=== PATIENT | male | born 1950 | race American Indian/Alaskan Native ===

== ENCOUNTER 2017-02-14 08:59 | Day surgery (SDC) | payer MEDICARE, OTHER ==
[2017-02-14] MEDS ORDERED: PLAVIX PO ONE ×2 (09:17→10:10)
[2017-02-14] MEDS ORDERED: NACL 0.9% 500 ML 500 ML IV SCH (10:00)
[2017-02-14] MEDS ORDERED: XYLOCAINE 2% INFILTRATI ONE (11:25)
[2017-02-14] MEDS ORDERED: SUBLIMAZE ONE (11:25)
[2017-02-14] MEDS ORDERED: HEPARIN 10,000 UNITS/10 ML ONE (11:25)
[2017-02-14] MEDS ORDERED: HEPARIN/NS 5000 UNIT/500ML(CATH LAB) 1,000 ML IR ONE (11:25)
[2017-02-14] MEDS ORDERED: CALAN ONE (11:25)
[2017-02-14] MEDS ORDERED: VERSED ONE (11:25)
[2017-02-14] MEDS ORDERED: NITROGLYCERIN SYRINGE 3 ML ONE (11:55)
--- NOTE | 2017-02-14 13:32 | Short Stay Summary ---
Short Stay Documentation Date of service: 02/14/17 - History H&P: obtained from office - Allergies and Medications Current Medications: Allergies No Known Allergies Allergy (Unverified 02/14/17 09:00) Home Medications Medication Instructions Recorded Confirmed Last Taken Type Amlodipine Besylate/Benazepril 1 each PO QDAY 02/14/17 02/14/17 02/14/17 06:00 History [Lotrel 5-40 mg] 1 cap Aspirin EC [Aspirin Enteric Coated 81 mg PO DAILY 02/14/17 02/14/17 02/14/17 06: 30 History TAB] 81mg AtorvaSTATin [Lipitor] 40 mg PO QHS 02/14/17 02/14/17 02/13/17 History 40mg Clopidogrel Bisulfate [Plavix] 75 mg PO DAILY 02/14/17 02/14/17 02/14/17 History 75 mg Furosemide [Lasix] 20 mg PO QDAY 02/14/17 02/14/17 02/13/17 History 20mg Insulin Aspart [NovoLOG Flexpen] 5 units SQ TID PRN 02/14/17 02/14/17 11/14/16 History 5 units Insulin Glargine [Lantus VIAL] 75 units SQ HS 02/14/17 02/14/17 02/13/17 History 75 units Magnesium Oxide [Magnesium] 400 mg PO DAILY PRN 02/14/17 02/14/17 01/28/17 History Metoprolol [Lopressor] 100 mg PO DAILY 02/14/17 02/14/17 02/14/17 06:00 History 200mg Multivit-Min/Iron Fum/Folic AC 1 tab PO DAILY 02/14/17 02/14/17 02/12/17 History [Sasel-Croczli-Ebrtvepj Tablet] Niacin [Niaspan ER] 1,000 mg PO QHS 02/14/17 02/14/17 02/13/17 History 1000mg Nitroglycerin [Nitrostat] 0.4 mg SL Q5M PRN 02/14/17 02/14/17 01/14/17 History 0.4mg Sildenafil Citrate [Viagra] 100 mg PO QDAY PRN 02/14/17 02/14/17 12/15/16 History 50mg Ubidecarenone [Co Q-10] 50 mg PO DAILY 02/14/17 02/14/1711/14/17 History 1 cap Vit D3 & K/Berberine HCl/Hops 1 tab PO DAILY 02/14/17 02/14/17 02/13/17 History [Ostera Tablet] 1 tab metFORMIN [Glucophage] 500 mg PO BID 02/14/17 02/14/17 02/13/17 History 1000mg Active Medications Sodium Chloride (Nacl 0.9% 500 Ml) 500 mls @ 50 mls/hr IV DIRECT RENETTA Stop: 02/14/17 19:59 Last Admin: 02/14/17 10:33 Dose: 50 mls/hr - Brief post op/procedure progress note Date of procedure: 02/14/17 Pre-op diagnosis: PVD Post-op diagnosis: same Procedure: peripheral angiogram - see dictated report Anesthesia: local Estimated blood loss: none Pathology: none Condition: stable - Disposition Condition at discharge: Stable Disposition: DISCHARGED TO HOME OR SELFCARE - Discharge Diagnoses (1) PVD (peripheral vascular disease) Status: Chronic (2) Tobacco use Status: Chronic (3) CAD (coronary artery disease) Status: Chronic Qualifiers: Coronary Disease-Associated Artery/Lesion type: C [place] vs. transplanted heart: N Associated angina: A (4) HTN (hypertension) Status: Chronic Qualifiers: Hypertension type: H (5) Hyperlipemia Status: Chronic Qualifiers: Hyperlipidemia type: H Short Stay Discharge Plan Activity: advance as tolerated Diet: low fat, low cholesterol, low salt Wound: open to air, keep clean and dry Follow up with: ANA YUAN MD [Primary Care Provider] - 7 Days MAXIMINO ELISE MD [Staff Physician] - 7 Days Forms: Post Arteriogram Instruct
--- NOTE | 2017-02-14 14:24 | Cardiac Catherization Report ---
CLINICAL INFORMATION: This is a 66-year-old -[place] gentleman with known history of coronary artery disease, hypertension, diabetes, smoker, who has been having claudication symptoms on aspirin, Plavix here and ultrasound shows monophasic flow on low arterial studies and severe below the knee disease noted. So peripheral angiogram procedure was done via the right radial artery, sterile technique, local anesthesia, a 6-Persian radial sheath inserted, 5-Persian pigtail catheter was placed from the right radial artery to the distal abdominal aorta and the abdominal aorta runoff was done showed the following findings. FINDINGS: 1. Aorta large and patent, bilateral common iliacs patent, bilateral internal iliacs patent, bilateral external iliacs patent, bilateral common femoral artery is patent. 2. Right SFA mid is diffuse disease 80% distally at the popliteal becomes 100%, extensive collateralization feeding into the posterior tibial artery which is patent and anterior tibial and peroneal 100%. 3. Left SFA diffuse disease of 60% with a focal 80 to 90% noted in the distal SFA, popliteal patent with the peroneal patent. Anterior tibial 100% and posterior tibial 100%, but collateralization from the peroneal feeding into a posterior tibial distally. 5-Persian pigtail taken over a guidewire, 6-Persian radial sheath was discontinued. Radial dressing applied. No hematoma. No bleeding. SUMMARY: 1. Aorta and iliac system patent. 2. Right SFA diffuse disease, 50% and distal popliteal is 100% with collateralization, genicular branches feeding into the posterior tibial with peroneal anterior tibial 100%. 3. Left SFA has diffuse disease, 60% with focal, 80% with popliteal patent. Peroneal patent, but anterior tibial and posterior tibial is 100%, but collateralization into the distal portion by the feet. 4. The patient will continue dual antiplatelet, smoking cessation, post radial care and intervention of the lower extremities. JOB# [id number] DEBBIE/GISSEL WARE
[2017-02-14 14:38] VITALS: BP 121/76
[2017-02-15] MEDS ORDERED: PLAVIX PO ONE (10:10)
== END 2017-02-14 15:15 | disposition home or self-care (01) ==
LOC: OPU 08:59
PROVIDERS: ATTEND Internal Medicine
DX: I70.213 Atherosclerosis of native arteries of extremities with intermittent claudication, bilateral legs (principal); I25.10 Atherosclerotic heart disease of native coronary artery without angina pectoris; I10 Essential (primary) hypertension; E78.5 Hyperlipidemia, unspecified; E11.9 Type 2 diabetes mellitus without complications; F17.290 Nicotine dependence, other tobacco product, uncomplicated; Z79.899 Other long term (current) drug therapy; Z79.01 Long term (current) use of anticoagulants; Z79.4 Long term (current) use of insulin; Z79.82 Long term (current) use of aspirin; Z72.89 Other problems related to lifestyle; Z83.3 Family history of diabetes mellitus
CPT/HCPCS: 36200; 75716; 82962; C1894; J1644; J2250; J3010; J7040; Q9967

== ENCOUNTER 2017-05-28 06:44 | Observation (INO) | payer MEDICARE, OTHER ==
[2017-05-28 07:32] LABS: Basophils % (Auto) 0.3 % (0.0-1.8); Eosinophils % (Auto) 0.9 % (0.0-4.3); Hematocrit 42.5 % (35.5-45.6); Hemoglobin 14.1 gm/dl (11.8-15.2); Mean Corpuscular HGB Conc 33 % (32-34); Mean Corpuscular Hemoglobin 30 pg (28-32); Mean Corpuscular Volume 89 fl (84-94); Platelet Count 214 K/mm3 (140-440); Red Blood Count 4.76 M/mm3 (3.65-5.03); Red Cell Distribution Width 16.1 % (13.2-15.2); White Blood Count 7.2 K/mm3 (4.5-11.0)
[2017-05-28] MEDS: VERSED ONE ×2 (07:40→09:40)
[2017-05-28] MEDS: SUBLIMAZE ONE ×2 (07:40→09:40)
[2017-05-28 07:52] LABS: Anion Gap 17 mmol/L; Blood Urea Nitrogen 12 mg/dL (9-20); Carbon Dioxide 24 mmol/L (22-30); Chloride 104.5 mmol/L (98-107); Glucose 223 mg/dL (75-100); Potassium 4.3 mmol/L (3.6-5.0); Sodium 141 mmol/L (137-145)
[2017-05-28 07:55] LABS: INR 0.96 (0.87-1.13)
[2017-05-28] MEDS ORDERED: NACL 0.9% 500 ML 500 ML IV SCH (08:00)
[2017-05-28] MEDS ORDERED: HEPARIN/NS 5000 UNIT/500ML(CATH LAB) 1,000 ML IR ONE (09:28)
[2017-05-28] MEDS ORDERED: HEPARIN 10,000 UNITS/10 ML ONE (09:29)
[2017-05-28] MEDS ORDERED: XYLOCAINE 2% INFILTRATI ONE (09:29)
[2017-05-28] MEDS ORDERED: NACL 0.9% 100 ML ONE (09:46)
[2017-05-28] MEDS ORDERED: ANGIOMAX IV ONE (09:46)
[2017-05-28] MEDS ORDERED: WATER FOR INJ (PF) 10 ML ONE (09:46)
[2017-05-28] MEDS ORDERED: NORCO 5/325 PO PRN (11:09)
[2017-05-28] MEDS ORDERED: ZOFRAN IV PRN (11:09)
[2017-05-28] MEDS ORDERED: ULTRAM PO PRN (11:09)
[2017-05-28] MEDS ORDERED: NON-FORMULARY (Insulin Aspart [Novolog Flexpen] 5 UNITS) SQ PRN (11:13)
[2017-05-28] MEDS ORDERED: D50W (25GM) Syringe IV PRN (11:16)
[2017-05-28] MEDS ORDERED: NACL 0.9% 1000 ML 1,000 ML IV SCH (12:00)
[2017-05-28] MEDS ORDERED: NOVOLOG SUB-Q SCH (12:30)
[2017-05-28] MEDS ORDERED: PLAVIX ONE (15:00)
[2017-05-28] MEDS ORDERED: PLAVIX PO ONE (15:00)
[2017-05-28] MEDS: BABY ASPIRIN PO SCH (15:01)
[2017-05-28] MEDS: NOVOLOG SUB-Q SCH (21:52)
[2017-05-28] MEDS ORDERED: LEVEMIR SUB-Q SCH (22:00)
[2017-05-28] MEDS ORDERED: INSULIN GLARGINE 75 UNIT SQ SCH (22:00)
[2017-05-29 06:56] LABS: Basophils % (Auto) 0.3 % (0.0-1.8); Eosinophils % (Auto) 0.6 % (0.0-4.3); Hematocrit 37.8 % (35.5-45.6); Hemoglobin 12.9 gm/dl (11.8-15.2); Mean Corpuscular HGB Conc 34 % (32-34); Mean Corpuscular Hemoglobin 30 pg (28-32); Mean Corpuscular Volume 88 fl (84-94); Platelet Count 177 K/mm3 (140-440); Red Blood Count 4.27 M/mm3 (3.65-5.03); Red Cell Distribution Width 16.2 % (13.2-15.2); White Blood Count 7.3 K/mm3 (4.5-11.0)
[2017-05-29 07:21] LABS: Anion Gap 16 mmol/L; Blood Urea Nitrogen 12 mg/dL (9-20); Calcium 8.5 mg/dL (8.4-10.2); Carbon Dioxide 23 mmol/L (22-30); Glucose 183 mg/dL (75-100); Potassium 3.9 mmol/L (3.6-5.0); Sodium 140 mmol/L (137-145)
--- NOTE | 2017-05-29 08:17 | Procedure Note ---
PERIPHERAL INTERVENTION CLINICAL INFORMATION: This is a 66-year-old gentleman with known peripheral vascular disease, smoker, hypertension, hyperlipidemia, with claudication symptoms and had a peripheral angiogram which showed a right SFA distal 100% with popliteal 100 off with a single-vessel runoff. Left SFA, distal, had a focal 70%, ectatic vessel, popliteal patent. Anterior tibial 100%, bifurcation, TP trunk bifurcates to peroneal and posterior tibial and had 90% going to peroneal and 60% going to the posterior tibial. So, the procedure was done via the right common femoral artery, sterile technique, local anesthesia, 5-Mozambican groin sheath inserted. PROCEDURE DETAILS: 1. Using an Advantage wire and a rim catheter, I was able to navigate into the distal SFA of the left side. 2. I removed the rim catheter and the 5-Mozambican sheath and placed the destination sheath 7-Mozambican from the right common femoral artery to the left common femoral artery. 3. Wired into peroneal with a [place] wire and ballooned with a 3.0 x 30 balloon [place] from the TP trunk into the peroneal. The peroneal in the mid section is 100%, but there is a large genicular branch that feeds distally to it. 4. Then, I used a drug-coated balloon 4.0 x 40 and inflated at 6 atmospheres, reduced stenosis less than 20%, flow improved into genicular branch and the peroneal. 5. Rewired with a Choice PT in the posterior tibia and ballooned from the TP trunk into the peroneal with a 3.0 x 30 Impact balloon and reduced stenosis to less than 20% with improved flow into a single-vessel runoff, and improved collaterals into the anterior tibial. 6. TOWER LOADER OPERATOR of the left distal SFA on the Choice PT wire. Used a drug-coated balloon IN.PACT Admiral 5.0 x 40-mm inflated at 8 atmospheres, but there was a flow-limiting dissection now. 7. Stent with an EV3 Protege 6.0 x 60-mm and then post-dilated the same 5.0 x 40 at 12-14 atmospheres, reduced stenosis down to 0, continued KARINA 3 flow. No dissection or embolization. The patient has single-vessel 1/2 vessel runoff now, noted with TP trunk and posterior tibial patent and peroneal in the mid 100%, but distally is fed by a collateral and anterior tibial is 100%, but distal is fed by collaterals from the posterior tibial. 8. A 7-Mozambican destination sheath over the guide wire, 7-Mozambican groin sheath was sewn in. No hematoma. No bleeding. SUMMARY: 1. Successful TOWER LOADER OPERATOR of the left distal SFA with a drug-coated balloon 5.0 x 40 and then used a stent 6.0 x 60 for dissection and post-dilated with a 5.0 x 40 balloon. 2. TOWER LOADER OPERATOR of the TP trunk and peroneal and TP trunk into the posterior tibial, drug-coated balloon from the TP trunk to the peroneal 4.0 x 40 Admiral and balloon 3.0 x 30 in the posterior tibial with successful 1/2 vessel runoff feeds the anterior tibial and peroneal distally via collaterals and had improved flow. Discussed in detail with the patient and patient's family. JOB# [id number] DEBBIE/GISSEL
--- NOTE | 2017-05-29 09:43 | Short Stay Summary ---
Short Stay Documentation Date of service: 05/29/17 - History H&P: obtained from office - Allergies and Medications Current Medications: Allergies No Known Allergies Allergy (Verified 05/28/17 07:27) Home Medications Medication Instructions Recorded Confirmed Last Taken Type Amlodipine Besylate/Benazepril 1 each PO QDAY 02/14/17 05/28/17 05/27/17 History [Lotrel 5-40 mg] Aspirin EC [Aspirin Enteric Coated 81 mg PO DAILY 02/14/17 05/28/17 05/27/17 History TAB] AtorvaSTATin [Lipitor] 40 mg PO QHS 02/14/17 05/28/17 1 Month Ago History Clopidogrel Bisulfate [Plavix] 75 mg PO DAILY 02/14/17 05/28/17 05/27/17 History Furosemide [Lasix TAB] 20 mg PO QDAY 02/14/17 05/28/17 05/27/17 History Insulin Aspart [NovoLOG Flexpen] 5 units SQ TID PRN 02/14/17 05/28/17 2 Months Ago History Insulin Glargine [Lantus VIAL] 75 units SQ HS 02/14/17 05/28/17 05/26/17 History Magnesium Oxide [Magnesium] 400 mg PO DAILY PRN 02/14/17 05/28/17 1 Week Ago History Metoprolol [Lopressor TAB] 100 mg PO DAILY 02/14/17 05/28/17 05/27/17 History Multivit-Min/Iron Fum/Folic AC 1 tab PO DAILY 02/14/17 05/28/17 3 Days Ago History [Ykwmq-Ukxnkuq-Gqtjggzf Tablet] Niacin [Niaspan ER] 1,000 mg PO QHS 02/14/17 05/28/17 1 Week Ago History Nitroglycerin [Nitrostat] 0.4 mg SL Q5M PRN 02/14/17 05/28/17 2 Weeks Ago History Sildenafil Citrate [Viagra] 100 mg PO QDAY PRN 02/14/17 05/28/17 1 Month Ago History Ubidecarenone [Co Q-10] 50 mg PO DAILY 02/14/17 05/28/17 1 Week Ago History Vit D3 & K/Berberine HCl/Hops 1 tab PO DAILY 02/14/17 05/28/17 1 Week Ago History [Ostera Tablet] metFORMIN [Glucophage] 500 mg PO BID 02/14/17 05/28/17 05/27/17 History Active Medications Acetaminophen/Hydrocodone Bitart ([place] 5/325) 1 each PO Q6H PRN PRN Reason: Pain, Moderate (4-6) Aspirin (Baby Aspirin) 81 mg PO QDAY [facility] Last Admin: 05/28/17 15:01 Dose: 81 mg Atorvastatin Calcium (Lipitor) 40 mg PO QHS [facility] Last Admin: 05/28/17 21:54 Dose: 40 mg Clopidogrel Bisulfate (Plavix) 75 mg PO QDAY [facility] Dextrose (D50w (25gm) Syringe) 50 ml IV PRN PRN PRN Reason: Hypoglycemia Insulin Aspart (Novolog) 0 units SUB-Q ACHS [facility] PRN Reason: Protocol Last Admin: 05/28/17 21:52 Dose: 4 units Insulin Detemir (Levemir) 75 units SUB-Q QHS [facility] Last Admin: 05/28/17 21:53 Dose: 75 units Metoprolol Tartrate (Lopressor) 100 mg PO DAILY [facility] Ondansetron HCl (Zofran) 4 mg IV Q8H PRN PRN Reason: N/V unrelieved by Reglan Tramadol HCl (Ultram) 50 mg PO Q4H PRN PRN Reason: Pain, Mild (1-3) - Brief post op/procedure progress note Date of procedure: 05/28/17 Pre-op diagnosis: PAD Post-op diagnosis: same Procedure: SUPPLIER ENGINEER - see procedure note Anesthesia: local Estimated blood loss: none Condition: stable - Disposition Condition at discharge: Stable - Discharge Diagnoses (1) PVD (peripheral vascular disease) Status: Chronic (2) HTN (hypertension) Status: Chronic Qualifiers: Hypertension type: H (3) Hyperlipemia Status: Chronic Qualifiers: Hyperlipidemia type: H (4) Tobacco use Status: Chronic Short Stay Discharge Plan Activity: advance as tolerated Diet: low fat, low cholesterol, low salt Wound: keep clean and dry, per your surgeon's advice Follow up with: ANA YUAN MD [Primary Care Provider] - 7 Days
[2017-05-29] MEDS ORDERED: PLAVIX PO SCH (10:00)
[2017-05-29] MEDS ORDERED: BABY ASPIRIN PO SCH (10:00)
[2017-05-29] MEDS ORDERED: LOPRESSOR PO SCH (10:00)
[2017-05-29] MEDS: BABY ASPIRIN PO SCH (10:07)
[2017-05-29] MEDS: NOVOLOG SUB-Q SCH (10:09)
[2017-05-29 12:54] VITALS: BP 150/83
== END 2017-05-29 13:05 | disposition home or self-care (01) ==
LOC: CATHLABREC 06:44 → 4A 11:33
PROVIDERS: ADMIT Internal Medicine; ATTEND Internal Medicine
DX: I73.9 Peripheral vascular disease, unspecified (principal); F17.210 Nicotine dependence, cigarettes, uncomplicated; I10 Essential (primary) hypertension; E78.5 Hyperlipidemia, unspecified
CPT/HCPCS: 36415; 37226; 37228; 75710; 80048; 82962; 85025; 85347; 85610; 85730; 96372; A9270; C1725; C1769; C1876; C1887; G0378; J0583; J1644; J2250; J3010; J7040; J1815; J1818; Q9967

== ENCOUNTER 2020-09-26 06:24 | Day surgery (SDC) | payer MEDICARE, OTHER ==
[2020-09-26] MEDS ORDERED: SODIUM CHLORIDE 0.9% 500 ML 500 ML IV SCH (08:00)
[2020-09-26] MEDS ORDERED: MIDAZOLAM 2 MG/2 ML INJ ONE (08:34)
[2020-09-26] MEDS ORDERED: fentaNYL 100 MCG/2 ML INJ ONE (08:34)
[2020-09-26] MEDS ORDERED: LIDOCAINE (2%) 20 MG/1 ML VIAL 20 ML MDV INFILTRATI ONE ×3 (08:35→09:49)
[2020-09-26] MEDS ORDERED: HEPARIN/NS 5000 UNIT/500ML 1,500 ML IR ONE (08:36)
[2020-09-26] MEDS ORDERED: HEPARIN 10,000 UNITS/10 ML VIAL ONE (08:36)
[2020-09-26] MEDS ORDERED: NITROGLYCERIN SYRINGE 3 ML ONE (08:36)
[2020-09-26] MEDS ORDERED: HEPARIN 10,000 UNITS/10 ML VIAL IV ONE ×2 (09:23→09:49)
[2020-09-26] MEDS: VERAPAMIL 5 MG/2 ML INJ ONE ×2 (09:43→09:50)
--- NOTE | 2020-09-26 11:13 | Cardiac Catherization Report ---
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 He has hypertension, hyperlipidemia, smoker with peripheral vascular disease. DESCRIPTION OF PROCEDURE: Procedure was started at 9:48 a.m., finished at 10:03 which is 15 minutes of moderate sedation. Procedure was done via the right radial artery, sterile technique, local anesthesia, 6-Indian radial sheath inserted. Left and JL3.5 catheter. Left main is a large caliber vessel, patent. LAD is a large caliber vessel, mid smooth diffuse 60-70%. Diagonal 1 and medium caliber vessel, patent with mild luminal irregularities. Diagonal 2 small caliber. Circumflex ostial is patent, goes into a small OM1 patent. After that, the mid circumflex 99% with left to left collaterals noted feeding into a small to medium caliber OM1 and OM2 with extensive collateralization feeding into the distal RCA and mid RCA. RCA proximal engaged with JR4, is 100%. LV gram shows low normal EF approximately 45-50%. LVEDP 11 mmHg, LV is 128. Aortic is 120/66. No gradient across the aortic valve on pullback. 5-Indian catheters all taken over guidewire, 6-Indian radial sheath was discontinued. Radial dressing applied. No hematoma, no bleeding. SUMMARY: Left main patent, LAD 60-70% with no ischemia and cardiac PET in the anterior region. Diagonal 1 patent, mild luminal irregularities. Circumflex mid 99% with left to right collaterals feeding into the mid RCA. RCA proximal is 100% with low normal EF of 45-50%. The patient will be referred to [place] for CT of the RCA and circumflex. JOB# [id number] VRM/NTS
--- NOTE | 2020-09-26 11:47 | Short Stay Summary ---
Short Stay Documentation Date of service: 09/26/20 - History H&P: obtained from office - Allergies and Medications Current Medications: Allergies No Known Allergies Allergy (Verified 05/28/17 07:27) Home Medications Medication Instructions Recorded Confirmed Last Taken Type Amlodipine Besylate/Benazepril 1 each PO QDAY 02/14/17 09/26/20 09/25/20 History [Lotrel 5-40 mg] AtorvaSTATin [Lipitor] 40 mg PO QHS 02/14/17 09/26/20 09/25/20 History Furosemide [Lasix TAB] 20 mg PO QDAY 02/14/17 09/26/20 09/25/20 History Insulin Aspart (Nf) [NovoLOG 5 units SQ TID PRN 02/14/17 09/26/20 09/25/20 History Flexpen] Insulin Glargine [Lantus VIAL] 75 units SQ HS 02/14/17 09/26/20 09/25/20 History Metoprolol [Lopressor TAB] 200 mg PO DAILY 02/14/17 09/26/20 09/26/20 History Multivit-Min/Iron Fum/Folic AC 1 tab PO DAILY 02/14/17 09/26/20 09/25/20 History [Hnvyy-Mzkrgfd-Mvxwuqef Tablet] Niacin [Niaspan ER] 1,000 mg PO QHS 02/14/17 09/26/20 09/25/20 History Nitroglycerin [Nitrostat] 0.4 mg SL Q5M PRN 02/14/17 09/26/20 2 Weeks Ago History ~09/12/20 Sildenafil Citrate [Viagra] 100 mg PO QDAY PRN 02/14/17 09/26/20 2 Weeks Ago History ~09/12/20 Ubidecarenone [Co Q-10] 50 mg PO DAILY 02/14/17 09/26/20 09/25/20 History Aspirin [Aspirin BABY CHEW TAB] 81 mg PO QDAY tab.chew 05/29/17 09/26/20 09/26/20 Rx Clopidogrel [Plavix] 75 mg PO QDAY tablet 05/29/17 09/26/20 09/26/20 Rx metFORMIN [Glucophage] 500 mg PO BID #60 05/29/17 09/26/20 09/24/20 Rx Valsartan [Diovan] 320 mg PO QDAY 09/26/20 09/26/20 09/26/20 History Active Medications Hydrocodone Bitart/Acetaminophen (Hydrocodone/Acetaminophen 5-325 Mg Tab) 1 each PO Q4H PRN PRN Reason: Pain, Moderate (4-6) Sodium Chloride (Nacl 0.9% 500 Ml) 500 mls @ 50 mls/hr IV DIRECT RENETTA Stop: 09/26/20 17:59 Last Admin: 09/26/20 09:20 Dose: 100 mls Documented by: Tramadol HCl (Tramadol 50 Mg Tab) 50 mg PO Q4H PRN PRN Reason: Pain, Mild (1-3) - Brief post op/procedure progress note Date of procedure: 09/26/20 Pre-op diagnosis: CAD Post-op diagnosis: same Procedure: [facility] - see dictated cath report Anesthesia: local Estimated blood loss: none Condition: stable - Disposition Condition at discharge: Good Disposition: [id number] TO HOME OR SELFCARE - Discharge Diagnoses (1) CAD (coronary artery disease) Status: Chronic (2) HTN (hypertension) Status: Chronic (3) Hyperlipemia Status: Chronic (4) PVD (peripheral vascular disease) Status: Chronic (5) Tobacco use Status: Chronic Short Stay Discharge Plan Activity: advance as tolerated Diet: low fat, low cholesterol, low salt Wound: open to air, keep clean and dry, per your surgeon's advice Follow up with: ANA YUAN MD [Primary Care Provider] - 7 Days
[2020-09-26] MEDS ORDERED: HYDROcodone/ACETAMINOPHEN 5-325 MG TAB PO PRN (12:00)
[2020-09-26] MEDS ORDERED: traMADol 50 MG TAB PO PRN (12:00)
[2020-09-26 14:02] VITALS: BP 119/80
--- NOTE | 2020-09-26 16:04 | Cardiac Catherization Report ---
PERIPHERAL ANGIOGRAM CLINICAL INFORMATION: The patient had abnormal ultrasound with some claudication symptoms, history of EMBOSSING CALENDER OPERATOR of the left SFA with stent, hypertension, hyperlipidemia, coronary artery disease, and smoker. The patient was done with moderate sedation started at 9:48, finished at 10:03, 15 minutes of moderate sedation. Procedure was done via the right radial artery, sterile technique, local anesthesia, 6-Ugandan radial sheath inserted. Pigtail catheter was placed in the abdominal aorta and runoff was done showed distal abdominal aorta patent, bilateral common iliacs patent. Right internal iliac is patent. Left internal iliac has an ostial 80%. External iliac is patent. Bilateral common femoral artery patent. Right SFA, proximal is patent, mid has 50%, distal has a focal 95%. Then, the popliteal beyond the knee has 100%. Extensive collateralization noted with patent peroneal artery. Posterior tibial and anterior tibial 100%. Collateralization is noted. Left SFA, proximal patent, mid patent, distal stent has 90% in-stent restenosis. Popliteal is patent. Anterior tibial 100%, peroneal patent and posterior tibial 100%, but collaterals feeding to distal vessel, so 1.5 vessel runoff. Catheter was removed with guidewire, 6-Ugandan radial sheath was discontinued. Radial band applied. No hematoma, no bleeding. SUMMARY: 1. Abdominal aorta patent, bilateral common and external iliac patent, internal iliac right patent, left internal ostial 80%, bilateral common femoral artery patent. 2. Right superficial femoral artery, proximal patent, mid 50-60%, distal 95% with popliteal 100% with collateralization feeding the peroneal, and anterior tibial and posterior tibial 100%. 3. Left superficial femoral artery, proximal patent, mid patent, distal stent 95% in-stent restenosis, popliteal patent with 1.5 vessel runoff with anterior tibial 100%, peroneal patent, posterior tibial 100% with collateralization feeding the mid to distal posterior tibial. 4. The patient will be treated medically and consider EMBOSSING CALENDER OPERATOR. JOB# [id number] DEBBIE/GISSEL WARE
== END 2020-09-26 13:20 | disposition home or self-care (01) ==
LOC: CATHLABREC 06:24
PROVIDERS: ATTEND Internal Medicine
DX: I25.10 Atherosclerotic heart disease of native coronary artery without angina pectoris (principal); E11.51 Type 2 diabetes mellitus with diabetic peripheral angiopathy without gangrene; E78.2 Mixed hyperlipidemia; I70.213 Atherosclerosis of native arteries of extremities with intermittent claudication, bilateral legs; I11.0 Hypertensive heart disease with heart failure; I50.9 Heart failure, unspecified; M19.90 Unspecified osteoarthritis, unspecified site; F17.210 Nicotine dependence, cigarettes, uncomplicated; Z79.899 Other long term (current) drug therapy; Z79.82 Long term (current) use of aspirin; Z79.4 Long term (current) use of insulin; Z98.52 Vasectomy status; Z83.3 Family history of diabetes mellitus; Z98.890 Other specified postprocedural states; Z82.49 Family history of ischemic heart disease and other diseases of the circulatory system
CPT/HCPCS: 75716; 82962; 93005; 93458; 99156; C1894; J1644; J2250; J3010; J7040; 36200; 75625; Q9967